=== PATIENT | female | born 1950 | race African-American/Black ===

== ENCOUNTER 2024-06-22 18:21 | Inpatient (IN) | payer MEDICARE, OTHER ==
[~2024-06-22] VITALS: Ht 165.1 cm; Wt 59.0 kg
[2024-06-22] MEDS ORDERED: FERR-56 PO (18:54)
[2024-06-22] MEDS ORDERED: AMLO10TA4 PO (18:54)
[2024-06-22] MEDS ORDERED: MELA3CAP2 PO (18:54)
[2024-06-22] MEDS ORDERED: DONE10TA44 PO ×2 (18:54)
[2024-06-22] MEDS ORDERED: ACET-2154 PO (18:54)
[2024-06-22] MEDS ORDERED: CLON1TAB PO (18:54)
[2024-06-22] MEDS ORDERED: ERGO500040 PO (18:54)
[2024-06-22] MEDS ORDERED: IBUP-1953 PO (18:54)
[2024-06-22] MEDS ORDERED: PHEN-895 PO (18:54)
[2024-06-22] MEDS ORDERED: HALOPERIDOL LACTATE 5 MG/1 ML VIAL ONE (20:51)
[2024-06-22] MEDS: HALOPERIDOL LACTATE 5 MG/1 ML VIAL IM ONE (21:00)
[2024-06-22 21:07] LABS: ETHANOL < 3 MG/DL (0-10)
[2024-06-22 22:20] LABS: BASOPHILS % (AUTO) 0.6 % (0.0-2.0); EOSINOPHILS # (AUTO) 0.1 K/uL (0.0-0.7); EOSINOPHILS % (AUTO) 0.9 % (0.0-7.0); LYMPHOCYTES # (AUTO) 1.9 K/uL (0.8-4.8); MEAN CORPUSCULAR HGB CONC 34 g/dL (32.3-35.6); MEAN CORPUSCULAR VOLUME 94.1 fL (75.5-95.3); MONOCYTES # (AUTO) 0.7 K/uL (0.1-1.30); MONOCYTES % (AUTO) 8.7 % (0.0-11.0); NEUTROPHILS # (AUTO) 5.8 K/uL (1.8-8.9); NEUTROPHILS % (AUTO) 67.8 % (38.5-71.5); PLATELET COUNT (AUTO) 345 K/uL (179-408); RED CELL DISTRIBUTION WIDTH 12.6 % (12.3-17.7); WHITE BLOOD COUNT (AUTO) 8.5 K/uL (3.8-11.8)
[2024-06-22 22:57] LABS: DIFFERENTIAL COMMENT 1; HEMATOCRIT 19.6 % (31.2-41.9); HEMOGLOBIN 6.7 g/dL (10.9-14.3); RED BLOOD CELL COUNT(AUTO) 2.08 MIL/uL (3.63-4.92)
[2024-06-22 23:07] LABS: ALANINE AMINOTRANSFERASE 13 U/L (14-59); ALBUMIN 4.3 g/dL (3.4-5.0); ALKALINE PHOSPHATASE 96 U/L (50-136); ASPARTATE AMINOTRANSFERASE 16 U/L (15-37); BILIRUBIN,DIRECT 0.1 mg/dL (0.0-0.2); CALCIUM 9.8 mg/dL (8.5-10.1); CARBON DIOXIDE 17 mmol/L (21-32); CHLORIDE 106 mmol/L (98-107); CREATININE 6.3 mg/dL (0.6-1.3); GLUCOSE 95 mg/dL (74-106); POTASSIUM 4.4 mmol/L (3.5-5.1); SODIUM SERUM 142 mmol/L (136-145); TOTAL PROTEIN, SERUM 7.9 g/dL (6.4-8.2)
[2024-06-22 23:17] LABS: *BLOOD, URINE NEGATIVE (NEGATIVE); *CLARITY,URINE CLEAR (CLEAR); *COLOR,URINE AMBER (YELLOW); *KETONES,URINE TRACE (NEGATIVE); *PROTEIN,URINE 2+ (NEGATIVE); LEUKOCYTE ESTERASE ,URINE 3+ (NEGATIVE); NITRITE, URINE POSITIVE (NEGATIVE); UGLUCOSE TRACE (NEGATIVE)
[2024-06-22 23:20] LABS: UREA NITROGEN, BLOOD 87 mg/dL (7-18)
[2024-06-22 23:24] LABS: *BILIRUBIN,URIN 1+ (NEGATIVE)
[2024-06-22 23:45] LABS: *AMPHETAMINE, URINE NEGATIVE (NEGATIVE); *BARBITURATE, URINE NEGATIVE (NEGATIVE); *BENZODIAZEPINE, URINE NEGATIVE (NEGATIVE); *CANNABINOID, URINE NEGATIVE (NEGATIVE); *COCCAINE, URINE NEGATIVE (NEGATIVE); *OPIATE, URINE NEGATIVE (NEGATIVE); *PHENCYCLIDINE SCREEN,URINE NEGATIVE (NEGATIVE); FENTANYL, URINE NEGATIVE (NEGATIVE)
[2024-06-23 00:02] LABS: *OCCULT BLOOD STOOL NEGATIVE (NEGATIVE)
[2024-06-23 00:54] LABS: RBC,URINE 0-3 /HPF (0-3)
[2024-06-23 00:55] LABS: BACTERIA,URINE MODERATE /HPF (NONE SEEN); SQUAMOUS EPITHELIAL CELL,UR FEW /HPF (NONE SEEN); URIC ACID CRYSTALS,URINE FEW /HPF (NONE SEEN)
[2024-06-23] MEDS ORDERED: CEFTRIAXONE /D5W 50ML IVPB **ER PYXIS IV ONE (01:13)
[2024-06-23] MEDS: IV NS 1000 ML 1,000 ML IV ONE (01:15)
[2024-06-23] MEDS: CEFTRIAXONE 1 G in IV DEXTROSE 5% 50 ML IV ONE (01:15)
[2024-06-23 02:51] LABS: BILIRUBIN,TOTAL 0.9 mg/dL (0.2-1.0)
[2024-06-23 02:59] LABS: LYMPHOCYTES % (MANUAL) 18 % (20-40); MONOCYTES % (MANUAL) 7 % (2-10); NEUTROPHILS % (MANUAL) 75 % (42-75)
[2024-06-23] MEDS ORDERED: ONDANSETRON 4 MG/2 ML VIAL IV PRN (06:00)
[2024-06-23] MEDS ORDERED: ACETAMINOPHEN 325 MG TABLET PO PRN (06:00)
[2024-06-23] MEDS ORDERED: REMEDY ESSENTIAL ZINC PASTE 113 GM TP PRN (06:00)
[2024-06-23 07:10] LABS: CARBON DIOXIDE 20 mmol/L (21-32); CHLORIDE 108 mmol/L (98-107); CREATININE 5.8 mg/dL (0.6-1.3); GLUCOSE 79 mg/dL (74-106); MAGNESIUM 2.2 mg/dL (1.8-2.4); PHOSPHOROUS 4.8 mg/dL (2.5-4.9); POTASSIUM 4.1 mmol/L (3.5-5.1); SODIUM SERUM 141 mmol/L (136-145)
[2024-06-23 08:04] LABS: EOSINOPHILS # (AUTO) 0.1 K/uL (0.0-0.7); LYMPHOCYTES # (AUTO) 1.8 K/uL (0.8-4.8); MONOCYTES # (AUTO) 0.8 K/uL (0.1-1.30)
[2024-06-23 08:06] LABS: BASOPHILS # (AUTO) 0.1 K/UL (0.0-0.2); BASOPHILS % (AUTO) 0.7 % (0.0-2.0); EOSINOPHILS % (AUTO) 1.7 % (0.0-7.0); LYMPHOCYTES % (AUTO) 25.9 % (20.5-51.5); MEAN CORPUSCULAR HEMOGLOBIN 31.8 uug (24.7-32.8); MEAN CORPUSCULAR HGB CONC 34 g/dL (32.3-35.6); MEAN CORPUSCULAR VOLUME 94.9 fL (75.5-95.3); MONOCYTES % (AUTO) 11.2 % (0.0-11.0); NEUTROPHILS # (AUTO) 4.3 K/uL (1.8-8.9); NEUTROPHILS % (AUTO) 60.5 % (38.5-71.5); PLATELET COUNT (AUTO) 328 K/uL (179-408); RED CELL DISTRIBUTION WIDTH 12.8 % (12.3-17.7); WHITE BLOOD COUNT (AUTO) 7.1 K/uL (3.8-11.8)
[2024-06-23 09:14] LABS: UREA NITROGEN, BLOOD 81 mg/dL (7-18)
[2024-06-23 09:19] LABS: DIFFERENTIAL COMMENT 1; HEMOGLOBIN 6.4 g/dL (10.9-14.3)
[2024-06-23 10:27] LABS: THYROID STIMULATING HORMONE 2.766 mIU/mL (0.358-3.740)
[2024-06-23 14:32] LABS: ALANINE AMINOTRANSFERASE 10 U/L (14-59); ALBUMIN 3.9 g/dL (3.4-5.0); ALKALINE PHOSPHATASE 93 U/L (50-136); ASPARTATE AMINOTRANSFERASE 16 U/L (15-37); BILIRUBIN,TOTAL 0.7 mg/dL (0.2-1.0); CALCIUM 9.2 mg/dL (8.5-10.1); CARBON DIOXIDE 19 mmol/L (21-32); CHLORIDE 109 mmol/L (98-107); CREATININE 5.5 mg/dL (0.6-1.3); GLUCOSE 113 mg/dL (74-106); MAGNESIUM 2.3 mg/dL (1.8-2.4); PHOSPHOROUS 4.7 mg/dL (2.5-4.9); POTASSIUM 4.1 mmol/L (3.5-5.1); SODIUM SERUM 144 mmol/L (136-145); TOTAL PROTEIN, SERUM 7.4 g/dL (6.4-8.2); UREA NITROGEN, BLOOD 77 mg/dL (7-18)
[2024-06-23] MEDS: ALBUMIN HUMAN 25% 100 ML IV SCH (19:30)
[2024-06-23] MEDS: MELATONIN 3 MG TABLET PO STA (22:10)
[2024-06-23] MEDS: CLONAZEPAM 1 MG TABLET PO STA (22:10)
[2024-06-23] MEDS: OLANZAPINE 5 MG TABLET PO STA (22:20)
[2024-06-23] MEDS ORDERED: MELATONIN 3 MG TABLET ONE (22:43)
[2024-06-23] MEDS ORDERED: OLANZAPINE 5 MG TABLET ONE (22:43)
[2024-06-23] MEDS ORDERED: CLONAZEPAM 1 MG TABLET ONE (22:44)
[2024-06-23 23:00] LABS: EOSINOPHILS % (MANUAL) 2 % (0-8); LYMPHOCYTES % (MANUAL) 24 % (20-40); MONOCYTES % (MANUAL) 7 % (2-10); NEUTROPHILS % (MANUAL) 67 % (42-75)
[2024-06-24] MEDS: CEFTRIAXONE 1 G in IV DEXTROSE 5% 50 ML IV SCH (01:00)
[2024-06-24] MEDS ORDERED: diphenhydrAMINE 50 MG/1 ML VIAL ONE (08:15)
[2024-06-24 09:37] VITALS: BP 122/69; TEMP 98.4; O2SAT 97
[2024-06-24 09:37] LABS: BASOPHILS # (AUTO) 0.1 K/UL (0.0-0.2); EOSINOPHILS # (AUTO) 0.1 K/uL (0.0-0.7); EOSINOPHILS % (AUTO) 2.1 % (0.0-7.0); HEMATOCRIT 21.1 % (31.2-41.9); LYMPHOCYTES # (AUTO) 2.2 K/uL (0.8-4.8); LYMPHOCYTES % (AUTO) 31.8 % (20.5-51.5); MEAN CORPUSCULAR HGB CONC 33 g/dL (32.3-35.6); MEAN CORPUSCULAR VOLUME 96.4 fL (75.5-95.3); MONOCYTES # (AUTO) 0.5 K/uL (0.1-1.30); MONOCYTES % (AUTO) 7.6 % (0.0-11.0); NEUTROPHILS # (AUTO) 3.9 K/uL (1.8-8.9); NEUTROPHILS % (AUTO) 57.5 % (38.5-71.5); PLATELET COUNT (AUTO) 361 K/uL (179-408); RED CELL DISTRIBUTION WIDTH 12.9 % (12.3-17.7); WHITE BLOOD COUNT (AUTO) 6.8 K/uL (3.8-11.8)
[2024-06-24 09:44] LABS: DIFFERENTIAL COMMENT 1; RED BLOOD CELL COUNT(AUTO) 2.18 MIL/uL (3.63-4.92)
[2024-06-24 09:50] LABS: ALANINE AMINOTRANSFERASE 10 U/L (14-59); ALBUMIN 4.2 g/dL (3.4-5.0); ALKALINE PHOSPHATASE 97 U/L (50-136); ASPARTATE AMINOTRANSFERASE 17 U/L (15-37); BILIRUBIN,DIRECT 0.2 mg/dL (0.0-0.2); CALCIUM 9.9 mg/dL (8.5-10.1); CARBON DIOXIDE 20 mmol/L (21-32); CHLORIDE 111 mmol/L (98-107); CREATINE KINASE, TOTAL 65 U/L (26-192); GLUCOSE 89 mg/dL (74-106); MAGNESIUM 2.2 mg/dL (1.8-2.4); PHOSPHOROUS 4.4 mg/dL (2.5-4.9); POTASSIUM 3.9 mmol/L (3.5-5.1); SODIUM SERUM 146 mmol/L (136-145); UREA NITROGEN, BLOOD 72 mg/dL (7-18)
[2024-06-24] MEDS: PANTOPRAZOLE SODIUM 40 MG VIAL IV SCH (10:01)
[2024-06-24] MEDS: IV NS 1000 ML 1,000 ML IV PRN (10:40)
[2024-06-24 10:53] LABS: ERYTHROCYTE SEDIMENTATION RATE 19 MM/HR (0-20)
[2024-06-24] MEDS: ALBUMIN HUMAN 25% 100 ML IV SCH (15:32)
[2024-06-24 15:38] VITALS: BP 161/67; TEMP 98.2; O2SAT 93
[2024-06-24] MEDS: FERROUS SULFATE 325 MG TABEC PO SCH (17:41)
[2024-06-24] MEDS: DONEPEZIL 10 MG TABLET PO SCH (20:23)
[2024-06-24] MEDS: MELATONIN 3 MG TABLET PO SCH (20:23)
[2024-06-24] MEDS: CLONAZEPAM 1 MG TABLET PO SCH (20:23)
[2024-06-24] MEDS ORDERED: Medication Not On Formulary EA (Melatonin 3 MG) PO SCH (21:00)
[2024-06-24 21:16] VITALS: TEMP 97.6
[2024-06-24] MEDS: LORAZEPAM 2 MG/1 ML VIAL IV ONE ×2 (22:30→22:31)
[2024-06-25] VITALS (14 sets, daily range): BP systolic 125–158; BP diastolic 48–70; TEMP 97.2–97.8; O2SAT 94
[2024-06-25 07:11] LABS: PTH, INTACT 10 pg/mL (15-65)
[2024-06-25 11:16] LABS: ALANINE AMINOTRANSFERASE 10 U/L (14-59); ALBUMIN 4.8 g/dL (3.4-5.0); ALKALINE PHOSPHATASE 63 U/L (50-136); ASPARTATE AMINOTRANSFERASE 9 U/L (15-37); BILIRUBIN,TOTAL 0.9 mg/dL (0.2-1.0); CALCIUM 9.3 mg/dL (8.5-10.1); CARBON DIOXIDE 21 mmol/L (21-32); CHLORIDE 117 mmol/L (98-107); CREATININE 3.6 mg/dL (0.6-1.3); GLUCOSE 119 mg/dL (74-106); POTASSIUM 4.4 mmol/L (3.5-5.1); SODIUM SERUM 152 mmol/L (136-145); TOTAL PROTEIN, SERUM 7.4 g/dL (6.4-8.2); UREA NITROGEN, BLOOD 58 mg/dL (7-18)
[2024-06-25 12:13] LABS: EOSINOPHILS # (AUTO) 0.2 K/uL (0.0-0.7); LYMPHOCYTES # (AUTO) 1.2 K/uL (0.8-4.8); MONOCYTES # (AUTO) 0.4 K/uL (0.1-1.30); WHITE BLOOD COUNT (AUTO) 5.1 K/uL (3.8-11.8)
[2024-06-25 12:15] LABS: BASOPHILS % (AUTO) 0.8 % (0.0-2.0); EOSINOPHILS % (AUTO) 3.2 % (0.0-7.0); LYMPHOCYTES % (AUTO) 24.2 % (20.5-51.5); MEAN CORPUSCULAR HEMOGLOBIN 31.8 uug (24.7-32.8); MEAN CORPUSCULAR HGB CONC 33 g/dL (32.3-35.6); MEAN CORPUSCULAR VOLUME 95.8 fL (75.5-95.3); NEUTROPHILS # (AUTO) 3.3 K/uL (1.8-8.9); NEUTROPHILS % (AUTO) 63.8 % (38.5-71.5); PLATELET COUNT (AUTO) 317 K/uL (179-408); RED CELL DISTRIBUTION WIDTH 12.9 % (12.3-17.7)
[2024-06-25 12:32] LABS: RED BLOOD CELL COUNT(AUTO) 1.81 MIL/uL (3.63-4.92)
[2024-06-25 12:36] LABS: DIFFERENTIAL COMMENT 1; HEMATOCRIT 17.3 % (31.2-41.9); HEMOGLOBIN 5.7 g/dL (10.9-14.3)
[2024-06-25 16:33] LABS: LYMPHOCYTES % (MANUAL) 0 % (20-40); NEUTROPHILS % (MANUAL) 0 % (42-75)
[2024-06-26 00:06] LABS: HEPATITIS B SURFACE AB, QUAL Non Reactive (.); HEPATITIS B SURFACE AG Negative (Negative); HEPATITIS C VIRUS ANTIBODY Non Reactive (Non Reactive)
[2024-06-26] MEDS ORDERED: ZOLPIDEM 5 MG TABLET PO PRN (02:00)
[2024-06-26 03:06] LABS: COMPLEMENT, C3 SERUM 140 mg/dL (82-167); COMPLEMENT, C4 SERUM 36 mg/dL (12-38)
[2024-06-26 06:06] LABS: A/G RATIO 1.1 (0.7-1.7); ALPHA-1-GLOBULIN 0.2 g/dL (0.0-0.4); ALPHA-2-GLOBULIN 0.6 g/dL (0.4-1.0); BETA GLOBULIN 1.2 g/dL (0.7-1.3); GAMMA GLOBULIN 1.5 g/dL (0.4-1.8); GLOBULIN, TOTAL 3.5 g/dL (2.2-3.9); M-SPIKE Not Observed g/dL (Not Observed); PROTEIN, TOTAL 7.5 g/dL (6.0-8.5)
[2024-06-26 15:27] VITALS: BP 132/59; TEMP 98.3; O2SAT 100
[2024-06-26 19:30] VITALS: BP 131/71; TEMP 98.4; O2SAT 100
[2024-06-27 06:00] VITALS: BP 147/69; TEMP 98.5; O2SAT 98
[2024-06-27 06:57] LABS: BASOPHILS % (AUTO) 0.5 % (0.0-2.0); EOSINOPHILS # (AUTO) 0.1 K/uL (0.0-0.7); EOSINOPHILS % (AUTO) 1.6 % (0.0-7.0); HEMATOCRIT 27.9 % (31.2-41.9); HEMOGLOBIN 9.7 g/dL (10.9-14.3); LYMPHOCYTES # (AUTO) 1.7 K/uL (0.8-4.8); LYMPHOCYTES % (AUTO) 24.8 % (20.5-51.5); MEAN CORPUSCULAR HEMOGLOBIN 32.1 uug (24.7-32.8); MEAN CORPUSCULAR HGB CONC 35 g/dL (32.3-35.6); MEAN CORPUSCULAR VOLUME 92.4 fL (75.5-95.3); MONOCYTES # (AUTO) 0.7 K/uL (0.1-1.30); MONOCYTES % (AUTO) 9.3 % (0.0-11.0); NEUTROPHILS # (AUTO) 4.5 K/uL (1.8-8.9); NEUTROPHILS % (AUTO) 63.8 % (38.5-71.5); PLATELET COUNT (AUTO) 300 K/uL (179-408); RED BLOOD CELL COUNT(AUTO) 3.02 MIL/uL (3.63-4.92); RED CELL DISTRIBUTION WIDTH 13.5 % (12.3-17.7)
[2024-06-27 07:02] LABS: DIFFERENTIAL COMMENT 1
[2024-06-27 07:23] LABS: ALANINE AMINOTRANSFERASE 12 U/L (14-59); ALBUMIN 4.3 g/dL (3.4-5.0); ALKALINE PHOSPHATASE 77 U/L (50-136); ASPARTATE AMINOTRANSFERASE < 5 U/L (15-37); BILIRUBIN,TOTAL 1.2 mg/dL (0.2-1.0); CALCIUM 9.4 mg/dL (8.5-10.1); CARBON DIOXIDE 24 mmol/L (21-32); CHLORIDE 112 mmol/L (98-107); CREATININE 2.3 mg/dL (0.6-1.3); GLUCOSE 81 mg/dL (74-106); MAGNESIUM 1.6 mg/dL (1.8-2.4); PHOSPHOROUS 2.9 mg/dL (2.5-4.9); POTASSIUM 3.9 mmol/L (3.5-5.1); SODIUM SERUM 146 mmol/L (136-145); TOTAL PROTEIN, SERUM 7.5 g/dL (6.4-8.2); UREA NITROGEN, BLOOD 34 mg/dL (7-18)
[2024-06-27 11:25] VITALS: BP 129/72; TEMP 98.6; O2SAT 96
[2024-06-27 16:07] VITALS: BP 118/73; TEMP 98.3; O2SAT 94
[2024-06-27] MEDS: MAGNESIUM OXIDE 400 MG TABLET PO ONE (16:28)
[2024-06-27 22:50] VITALS: BP 160/81; TEMP 98.9; O2SAT 96
[2024-06-28] MEDS: PANTOPRAZOLE SODIUM 40 MG TABLET.DR PO SCH (06:18)
[2024-06-28 07:10] VITALS: BP 147/55; TEMP 98; O2SAT 94
[2024-06-28 12:00] VITALS: BP 130/71; TEMP 97.8; O2SAT 97
[2024-06-28 16:02] VITALS: BP 95/56; TEMP 98; O2SAT 94
[2024-06-28] MEDS ORDERED: PANT40TA49 PO (16:22)
[2024-06-28] MEDS ORDERED: FOLI0.8T2 PO (16:22)
[2024-06-28] MEDS ORDERED: OMEG-49 PO (16:27)
== END 2024-06-28 18:16 | DRG 811 ==
LOC: ER 18:36 → TRANSITION 06-23 01:00 → DOU3 06-23 17:03 → TELE-TD3 06-24 08:40 → TELE3 06-24 10:38 → MEDSURG3 06-25 10:20
PROVIDERS: ADMIT Nurse Practitioner Acute Care; ATTEND Internal Medicine
PROC: 30233N1 Transfusion of Nonautologous Red Blood Cells into Peripheral Vein, Percutaneous Approach (ICD-10-PCS; 2024-06-25)
PROC: 05HC33Z Insertion of Infusion Device into Left Basilic Vein, Percutaneous Approach (ICD-10-PCS; principal; 2024-06-27)
DX: D64.9 Anemia, unspecified (principal); N17.0 Acute kidney failure with tubular necrosis; N39.0 Urinary tract infection, site not specified; E87.0 Hyperosmolality and hypernatremia; F03.93 Unspecified dementia, unspecified severity, with mood disturbance; F03.911 Unspecified dementia, unspecified severity, with agitation; G93.49 Other encephalopathy; E78.5 Hyperlipidemia, unspecified; R62.7 Adult failure to thrive; Z68.21 Body mass index [BMI] 21.0-21.9, adult; N28.1 Cyst of kidney, acquired; K74.60 Unspecified cirrhosis of liver; E83.42 Hypomagnesemia; E80.6 Other disorders of bilirubin metabolism; F99 Mental disorder, not otherwise specified; Z88.3 Allergy status to other anti-infective agents; Z88.2 Allergy status to sulfonamides; I11.9 Hypertensive heart disease without heart failure; Z79.899 Other long term (current) drug therapy; Z88.8 Allergy status to other drugs, medicaments and biological substances
CPT/HCPCS: 36415; 70030-TC; 71045; 76770; 83735; 83970; 84100; 84155; 84165; 84443; 84484; 85025; 85651; 86038; 86160; 86706; 86803; 86850; 86900; 86901; 86920; 87340; A4663; C1758; G0378; G0480; J0696; J1200; J1630; J2060; J2470; J7040; J7070; P9016; P9047